=== PATIENT | male | born 1990 | race American Indian/Alaskan Native ===

== ENCOUNTER 2016-11-19 14:01 | Emergency (ER) | payer SELFPAY ==
[2016-11-19 14:31] VITALS: BP 137/78
--- NOTE | 2016-11-19 14:54 | EDM.PDOC ---
ED HPI GENERAL MEDICAL PROBLEM - General Chief Complaint: General Stated Complaint: [id number] COUGH SOB STUFFY NOSE BLOOD Time Seen by Provider: 11/19/16 14:54 Source of Information: Reports: Patient, RN, RN Notes Reviewed History Limitations: Reports: No Limitations - History of Present Illness INITIAL COMMENTS - FREE TEXT/NARRATIVE: Complaining of sinus pain x2-3 months with congestion, post-nasal drip. Now patient complaining of fever, chills and cough. Severity: Severe Improves with: Reports: None Worsens with: Reports: None Associated Symptoms: Reports: No Other Symptoms Chest Pain Score (Numeric/FACES): 3 - Related Data Allergies Allergy/AdvReac Type Severity Reaction Status Date / Time No Known Allergies Allergy Verified 11/19/16 14:32 Home Meds: Home Meds Albuterol [Ventolin HFA] 1 inh PO DAILY PRN 09/11/14 [History] Fluticasone Propionate [Flovent HFA 110 MCG] 1 puff INH BID 09/11/14 [History] Albuterol Sulfate 1 dose INH Q6H PRN 12/28/14 [History] Citalopram Hydrobromide [Citalopram HBr] 1 tab PO DAILY 12/28/14 [History] LORazepam 1 tab PO ASDIRECTED PRN 12/28/14 [History] Past Medical History - Past Health History Medical/Surgical History: Denies Medical/Surgical History HEENT History: Reports: None Cardiovascular History: Reports: None Respiratory History: Reports: Asthma Gastrointestinal History: Reports: None Genitourinary History: Reports: None Musculoskeletal History: Reports: None Neurological History: Reports: None Psychiatric History: Reports: Anxiety Endocrine/Metabolic History: Reports: None Hematologic History: Reports: None Immunologic History: Reports: None Oncologic (Cancer) History: Reports: None Dermatologic History: Reports: None - Past Surgical History HEENT Surgical History: Reports: Tonsillectomy Social & Family History - Family History Family Medical History: Noncontributory - Tobacco Use Smoking Status *Q: Light Tobacco Smoker Years of Tobacco use: 5 Packs/Tins Daily: 0.4 Used Tobacco, but Quit: No Month Tobacco Last Used: 12/10/2014 Second Hand Smoke Exposure: No - Caffeine Use Caffeine Use: Reports: Soda - Alcohol Use Days Per Week of Alcohol Use: 0 Number of Drinks Per Day: 5 Total Drinks Per Week: 0 - Recreational Drug Use Recreational Drug Use: No - Living Situation & Occupation Living situation: Reports: with Family Occupation: Employed ED ROS GENERAL - Review of Systems Review Of Systems: ROS reveals no pertinent complaints other than HPI. ED EXAM, GENERAL - Physical Exam Exam: See Below Exam Limited By: No Limitations General Appearance: Alert, WD/WN, No Apparent Distress Eye Exam: Bilateral Eye: Normal Inspection Ears: Other (injected turbinates with purulent drainage. ) Nose: Other (post-nasal drip. ) Throat/Mouth: Other Head: Other (maxillary and frontal facial tenderness. ) Neck: Normal Inspection, Supple, Non-Tender, Full Range of Motion Respiratory/Chest: Other (cough with scattered wheezes.) Cardiovascular: Normal Peripheral Pulses, Regular Rate, Rhythm, No Edema, No Gallop, No JVD, No Murmur, No Rub Back Exam: Normal Inspection, Full Range of Motion, NT Extremities: Normal Inspection, Normal Range of Motion, Non-Tender, Normal Capillary Refill, No Pedal Edema Neurological: Alert, Oriented, CN II-XII Intact, Normal Cognition, Normal Gait, Normal Reflexes, No Motor/Sensory Deficits Psychiatric: Normal Affect, Normal Mood Skin Exam: Warm, Dry, Intact, Normal Color, No Rash Lymphatic: No Adenopathy Course - Vital Signs Last Recorded V/S: Last Vital Signs Temp 36.4 C 11/19/16 14:30 Pulse 73 11/19/16 14:30 Resp 22 H 11/19/16 14:30 BP 137/78 11/19/16 14:30 Pulse Ox 100 11/19/16 14:30 - Orders/Labs/Meds Meds: Medications Discontinued Medications Generic Name Dose Route Start Last Admin Trade Name Tia PRN Reason Stop Dose Admin Albuterol 6.7 gm 11/19/16 15:37 11/19/16 15:49 Proventil Hfa INH 11/19/16 15:38 2 puff ONETIME ONE Administration Amoxicillin/Clavulanate Potassium 1 tab 11/19/16 15:36 11/19/16 15:49 Augmentin 875 Mg/125 Mg PO 11/19/16 15:37 1 tab ONETIME ONE Administration Prednisone 60 mg 11/19/16 15:37 11/19/16 15:49 Prednisone PO 11/19/16 15:38 60 mg ONETIME ONE Administration - Radiology Interpretation Free Text/Narrative:: Chest x-ray: Per rad report no active disease of the chest. No significant interval change. Departure - Departure Time of Disposition: 15:39 Disposition: Home, Self-Care 01 Condition: good Clinical Impression: Bronchitis Sinusitis Qualifiers: Sinusitis location: pansinusitis Chronicity: acute Recurrence: non-recurrent Qualified Code(s): J01.40 - Acute pansinusitis, unspecified - Discharge Information Instructions: Sinusitis, Adult, [id number], Acute Bronchitis, [id number] Forms: ED Department Discharge Additional Instructions: RX: Augmentin 875mg. Prednisone 20mg. Claritin D 24 hour. Frequent salt water gargle until improved. Follow up in clinic in 7 to 10 days if not clinically.
[2016-11-19] MEDS ORDERED: Amoxicillin/Clavulanate K 875-125 MG Tab PO ONE (15:36)
[2016-11-19] MEDS ORDERED: Albuterol 6.7 GM Inhaler INH ONE (15:37)
[2016-11-19] MEDS ORDERED: predniSONE 20 MG Tab PO ONE (15:37)
== END 2016-11-19 15:52 | disposition home or self-care (01) ==
LOC: DL.ED 14:01
DX: J40 Bronchitis, not specified as acute or chronic (principal); J01.40 Acute pansinusitis, unspecified; F17.210 Nicotine dependence, cigarettes, uncomplicated; Z79.899 Other long term (current) drug therapy
CPT/HCPCS: 71020; 99284; A9270; 99283

== ENCOUNTER 2017-03-12 13:49 | Emergency (ER) | payer OTHER ==
[2017-03-12 13:56] VITALS: BP 131/74
--- NOTE | 2017-03-12 14:16 | EDM.PDOC ---
ED HPI GENERAL MEDICAL PROBLEM - General Chief Complaint: Respiratory Problem Stated Complaint: hard time breathing [id number] Time Seen by Provider: 03/12/17 14:00 Source of Information: Reports: Patient, RN Notes Reviewed History Limitations: Reports: No Limitations - History of Present Illness INITIAL COMMENTS - FREE TEXT/NARRATIVE: Patient has dizziness, weakness, chest pain with shortness of breath, headache, cough, and phlegm that is yellow/brown. Seen at [facility] on and given Augmentin. No chest x-ray done. He had fever and chills 2 days ago. Nausea and vomiting x2 days ago. Nausea and vomiting with coughing. Thirsty all the time. Scribed by Nettie Szymanski Location: Reports: Chest Severity: Moderate Improves with: Reports: None Worsens with: Reports: None Associated Symptoms: Reports: No Other Symptoms - Related Data Allergies Allergy/AdvReac Type Severity Reaction Status Date / Time No Known Allergies Allergy Verified 11/19/16 14:32 Home Meds: Home Meds Albuterol [Ventolin HFA] 1 inh PO DAILY PRN 09/11/14 [History] Fluticasone Propionate [Flovent HFA 110 MCG] 1 puff INH BID 09/11/14 [History] Albuterol Sulfate 1 dose INH Q6H PRN 12/28/14 [History] Citalopram Hydrobromide [Citalopram HBr] 1 tab PO DAILY 12/28/14 [History] LORazepam 1 tab PO ASDIRECTED PRN 12/28/14 [History] Past Medical History - Past Health History Medical/Surgical History: Denies Medical/Surgical History HEENT History: Reports: None Cardiovascular History: Reports: None Respiratory History: Reports: Asthma Gastrointestinal History: Reports: None Genitourinary History: Reports: None Musculoskeletal History: Reports: None Neurological History: Reports: None Psychiatric History: Reports: Anxiety Endocrine/Metabolic History: Reports: None Hematologic History: Reports: None Immunologic History: Reports: None Oncologic (Cancer) History: Reports: None Dermatologic History: Reports: None - Past Surgical History HEENT Surgical History: Reports: Tonsillectomy Social & Family History - Family History Family Medical History: Noncontributory - Tobacco Use Smoking Status *Q: Current Every Day Smoker Years of Tobacco use: 5 Packs/Tins Daily: 0.2 Used Tobacco, but Quit: No Month Tobacco Last Used: 12/10/2014 Second Hand Smoke Exposure: No - Caffeine Use Caffeine Use: Reports: None - Alcohol Use Days Per Week of Alcohol Use: 0 Number of Drinks Per Day: 5 Total Drinks Per Week: 0 - Recreational Drug Use Recreational Drug Use: No - Living Situation & Occupation Living situation: Reports: with Family Occupation: Employed ED ROS GENERAL - Review of Systems Review Of Systems: ROS reveals no pertinent complaints other than HPI. ED EXAM, GENERAL - Physical Exam Exam: See Below Exam Limited By: No Limitations General Appearance: Alert, WD/WN, No Apparent Distress Eye Exam: Bilateral Eye: PERRL Ears: Other (bilateral effusions--otitis externa.) Nose: Normal Inspection Throat/Mouth: Other (mild erythematous oropharynx.) Head: Atraumatic, Normocephalic Neck: Normal Inspection, Supple, Non-Tender, Full Range of Motion Respiratory/Chest: No Respiratory Distress, Lungs Clear, Normal Breath Sounds, No Accessory Muscle Use, Chest Non-Tender Cardiovascular: Normal Peripheral Pulses, Regular Rate, Rhythm, No Edema, No Gallop, No JVD, No Murmur, No Rub GI/Abdominal: Normal Bowel Sounds, Soft, Non-Tender, No Organomegaly, No Distention, No Abnormal Bruit, No Mass (Male) Exam: Deferred Rectal (Males) Exam: Deferred Back Exam: Normal Inspection, Full Range of Motion, NT Extremities: Normal Inspection, Normal Range of Motion, Non-Tender, Normal Capillary Refill, No Pedal Edema Neurological: Alert, Oriented, CN II-XII Intact, Normal Cognition, Normal Gait, Normal Reflexes, No Motor/Sensory Deficits Psychiatric: Normal Affect, Normal Mood Skin Exam: Warm, Dry, Intact, Normal Color, No Rash Lymphatic: Adenopathy (right anterior cervical lymphadenopathy.) Course - Vital Signs Last Recorded V/S: Last Vital Signs Temp 96.7 F 03/12/17 13:55 Pulse 83 03/12/17 13:55 Resp 18 03/12/17 13:55 BP 131/74 03/12/17 13:55 Pulse Ox 96 03/12/17 13:55 - Orders/Labs/Meds Orders: Active Orders 24 hr Category Date Time Status Chest 2V [CR] Urgent Exams 03/12/17 14:09 Taken CULTURE STREP A CONFIRMATION [RM] Stat Lab 03/12/17 14:40 Results STREP SCRN A RAPID W CULT CONF [RM] Stat Lab 03/12/17 14:40 Results Labs: Laboratory Tests 03/12/17 03/12/17 03/12/17 Range/Units 14:21 14:21 14:21 WBC 7.0 (5.0-10.0) 10^3/uL RBC 5.05 (4.6-6.2) 10^6/uL Hgb 14.2 (14.0-18.0) g/dL Hct 43.1 (40.0-54.0) % MCV 85.3 (80-100) fL MCH 28.1 (27.0-34.0) pg MCHC 32.9 L (33.0-35.0) g/dL Plt Count 255 (150-450) 10^3/uL Neut % (Auto) 61.5 (42.2-75.2) % Lymph % (Auto) 29.8 (20.5-50.1) % [place] % (Auto) 5.2 (2-8) % Eos % (Auto) 3.1 H (1.0-3.0) % Baso % (Auto) 0.4 (0.0-1.0) % Sodium 137 (135-145) mmol/L Potassium 3.6 (3.6-5.0) mmol/L Chloride 102 (101-111) mmol/L Carbon Dioxide 25.0 (21.0-31.0) mmol/L Anion Gap 13.6 BUN 10 (7-18) mg/dL Creatinine 0.7 (0.6-1.3) mg/dL Est Cr Clr Drug Dosing 182.31 mL/min Estimated GFR (MDRD) > 60 BUN/Creatinine Ratio 14.28 Glucose 209 H (74-105) mg/dL Lactic Acid 2.2 (0.5-2.2) mmol/L Calcium 9.4 (8.4-10.2) mg/dl Total Bilirubin 0.6 (0.2-1.0) mg/dL AST 59 H (10-42) IU/L ALT 91 H (10-60) IU/L Alkaline Phosphatase 197 H (42-121) IU/L Total Protein 7.8 (6.7-8.2) g/dl Albumin 4.0 (3.2-5.5) g/dl Globulin 3.8 Albumin/Globulin Ratio 1.05 Departure - Departure Time of Disposition: 15:41 Disposition: Home, Self-Care 01 Condition: Fair Clinical Impression: Bronchitis - Discharge Information Instructions: Acute Bronchitis, [id number] Forms: ED Department Discharge Additional Instructions: RX: Prednisone. Follow up with primary care facility one week. - My Orders Last 24 Hours: My Active Orders 03/12/17 14:09 Chest 2V [CR] Urgent 03/12/17 14:40 CULTURE STREP A CONFIRMATION [RM] Stat STREP SCRN A RAPID W CULT CONF [RM] Stat - Assessment/Plan Last 24 Hours: My Active Orders 03/12/17 14:09 Chest 2V [CR] Urgent 03/12/17 14:40 CULTURE STREP A CONFIRMATION [RM] Stat STREP SCRN A RAPID W CULT CONF [RM] Stat
[2017-03-12 14:47] LABS: CHLORIDE,CL 102 mmol/L (101-111); SODIUM,NA 137 mmol/L (135-145)
== END 2017-03-12 15:48 | disposition home or self-care (01) ==
LOC: DL.ED 13:49
DX: J40 Bronchitis, not specified as acute or chronic (principal); F41.9 Anxiety disorder, unspecified; F17.210 Nicotine dependence, cigarettes, uncomplicated; Z98.890 Other specified postprocedural states; Z79.899 Other long term (current) drug therapy
CPT/HCPCS: 36415; 71020; 80053; 83605; 85025; 87081; 87430; 87804; 99285

== ENCOUNTER 2018-07-07 20:04 | Emergency (ER) | payer OTHER ==
[2018-07-07 20:13] VITALS: BP 149/77
[2018-07-07] MEDS ORDERED: Codeine/Promethazine 10-6.25 MG/5 ML Syrup 5 ML UD Cup PO ONE (22:09)
[2018-07-07] MEDS ORDERED: Azithromycin 250 MG Tab PO ONE (22:09)
[2018-07-07] MEDS ORDERED: Albuterol/Ipratropium 3.0-0.5 MG/3 ML Neb Soln NEB ONE (22:09)
[2018-07-07] MEDS ORDERED: methylPREDNISolone Sodium Succinate 125 MG/2 ML SDV IM ONE (22:09)
--- NOTE | 2018-07-07 22:14 | EDM.PDOC ---
ED HPI GENERAL MEDICAL PROBLEM - General Chief Complaint: Respiratory Problem Stated Complaint: COUGH,CHEST HURTS [id number] Time Seen by Provider: 07/07/18 22:11 Source of Information: Reports: Patient History Limitations: Reports: No Limitations - History of Present Illness INITIAL COMMENTS - FREE TEXT/NARRATIVE: Dx with bronchitis week ago told will get better but not. feels worse tonight. gives h/o asthma Upper Pain Score (Numeric/FACES): 3 - Related Data Allergies Allergy/AdvReac Type Severity Reaction Status Date / Time No Known Allergies Allergy Verified 07/07/18 20:16 Home Meds: Home Meds Albuterol [Ventolin HFA] 1 inh PO DAILY PRN 09/11/14 [History] Fluticasone Propionate [Flovent HFA 110 MCG] 1 puff INH BID 09/11/14 [History] Albuterol Sulfate 1 dose INH Q6H PRN 12/28/14 [History] Citalopram Hydrobromide [Citalopram HBr] 1 tab PO DAILY 12/28/14 [History] LORazepam 1 tab PO ASDIRECTED PRN 12/28/14 [History] Past Medical History - Past Health History Medical/Surgical History: Denies Medical/Surgical History HEENT History: Reports: Impaired Vision Cardiovascular History: Reports: None Respiratory History: Reports: Asthma Gastrointestinal History: Reports: None Genitourinary History: Reports: None Musculoskeletal History: Reports: None Neurological History: Reports: None Psychiatric History: Reports: Anxiety Endocrine/Metabolic History: Reports: None Hematologic History: Reports: None Immunologic History: Reports: None Oncologic (Cancer) History: Reports: None Dermatologic History: Reports: None - Infectious Disease History Infectious Disease History: Reports: None - Past Surgical History Head Surgeries/Procedures: Reports: None HEENT Surgical History: Reports: Tonsillectomy Social & Family History - Family History Family Medical History: Noncontributory - Tobacco Use Smoking Status *Q: Current Every Day Smoker Years of Tobacco use: 10 Packs/Tins Daily: 0.5 Used Tobacco, but Quit: No - Caffeine Use Caffeine Use: Reports: Soda - Recreational Drug Use Recreational Drug Use: No - Living Situation & Occupation Living situation: Reports: with Family Occupation: Employed ED ROS GENERAL - Review of Systems Review Of Systems: ROS reveals no pertinent complaints other than HPI. ED EXAM, GENERAL - Physical Exam Exam: See Below Exam Limited By: No Limitations General Appearance: Alert, WD/WN, Mild Distress, Other (episodic cough spasms) Ears: Hearing Grossly Normal Throat/Mouth: Normal Voice, No Airway Compromise Head: Atraumatic Neck: Non-Tender, Full Range of Motion Respiratory/Chest: No Respiratory Distress, No Accessory Muscle Use, Decreased Breath Sounds, Rhonchi, Wheezing Cardiovascular: Regular Rate, Rhythm GI/Abdominal: Soft, Non-Tender Neurological: Alert, Oriented, Normal Cognition, Normal Gait, No Motor/Sensory Deficits Psychiatric: Flat Affect Skin Exam: Warm, Dry, Normal Color Lymphatic: No Adenopathy Course - Vital Signs Last Recorded V/S: Last Vital Signs Temp 36.7 C 07/07/18 20:12 Pulse 70 07/07/18 20:12 Resp 18 07/07/18 20:12 BP 149/77 H 07/07/18 20:12 Pulse Ox 100 07/07/18 20:12 - Orders/Labs/Meds Orders: Active Orders 24 hr Category Date Time Status RT Aerosol Therapy [RC] ASDIRECTED Care 07/07/18 22:10 Active Meds: Medications Discontinued Medications Generic Name Dose Route Start Last Admin Trade Name Freq PRN Reason Stop Dose Admin Albuterol/Ipratropium 3 ml 07/07/18 22:09 07/07/18 22:24 Duoneb 3.0-0.5 Mg/3 Ml NEB 07/07/18 22:10 3 ml ONETIME ONE Administration Azithromycin 500 mg 07/07/18 22:09 07/07/18 22:23 Zithromax PO 07/07/18 22:10 500 mg ONETIME ONE Administration Methylprednisolone Sodium Succinate 125 mg 07/07/18 22:09 07/07/18 22:25 Solu-Medrol IM 07/07/18 22:10 125 mg ONETIME ONE Administration Promethazine HCl/Codeine 5 ml 07/07/18 22:09 07/07/18 22:23 Phenergan With Codeine PO 07/07/18 22:10 5 ml ONETIME ONE Administration Departure - Departure Time of Disposition: 22:36 Disposition: Home, Self-Care 01 Condition: Good Clinical Impression: Acute bronchitis with bronchospasm - Discharge Information Instructions: Acute Bronchitis, Adult, [id number] Forms: ED Department Discharge Additional Instructions: 1) use neb treatment 3 times daily for cough and wheeze 2) don't sleep flat at night 3) follow up at clinic rx given; z-allen medrol dospak phenergan codeine syrup qid prn x 4 oz - My Orders Last 24 Hours: My Active Orders 07/07/18 22:10 RT Aerosol Therapy [RC] ASDIRECTED - Assessment/Plan Last 24 Hours: My Active Orders 07/07/18 22:10 RT Aerosol Therapy [RC] ASDIRECTED
== END 2018-07-07 22:40 | disposition home or self-care (01) ==
LOC: DL.ED 20:04
DX: J20.9 Acute bronchitis, unspecified (principal); F17.210 Nicotine dependence, cigarettes, uncomplicated; J45.909 Unspecified asthma, uncomplicated; Z79.899 Other long term (current) drug therapy
CPT/HCPCS: 96372; 99283; A9270; J2930; J7620-GY

== ENCOUNTER 2020-06-20 17:39 | Emergency (ER) | payer OTHER ==
[2020-06-20] MEDS ORDERED: Sodium Chloride 0.9% 10 ML Syringe FLUSH PRN (17:47)
[2020-06-20 18:01] VITALS: BP 142/64; PULSE 85
--- NOTE | 2020-06-20 18:40 | CR ---
PROCEDURE INFORMATION: Exam: XR Chest, 1 View Exam date and time: 06/20/2020 6:30 PM Age: 29 years old Clinical indication: Other: Pain; Additional info: Chest pain/tightness, shortness of breath TECHNIQUE: Imaging protocol: XR of the chest Views: 1 view. COMPARISON: CR Chest 2V 07/13/2018 11:54 PM FINDINGS: 29-year-old male presenting with shortness of breath. A single view of the chest is provided for further evaluation. Clear lungs and pleural spaces. Normal cardiomediastinal silhouette and patent airways. No acute skeletal abnormality or aggressive osseous lesion. IMPRESSION: Normal chest.
[2020-06-20 18:45] LABS: ANION GAP 14.5 mEq/L (7-13); CHLORIDE,CL 101 mmol/L (98-107); SODIUM,NA 138 mmol/L (136-145)
--- NOTE | 2020-06-20 19:01 | EDM.PDOC ---
Scribed by Nettie Szymanski 06/20/20 [id number] for Lorie Doe MD ED HPI GENERAL MEDICAL PROBLEM - General Chief Complaint: Cardiovascular Problem Stated Complaint: LIGHT HEADED, HARDTIME BREATHING, FAINT Time Seen by Provider: 06/20/20 17:47 Source of Information: Reports: Patient, RN, RN Notes Reviewed History Limitations: Reports: No Limitations - History of Present Illness INITIAL COMMENTS - FREE TEXT/NARRATIVE: A 29-year-old male complaining of shortness of breath since 4:30 this afternoon. Patient also complaining of chest tightness and a feeling fo being overly warm. 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 History of asthma and anxiety. Patient cannot tell if he is experiencing an asthma exacerbation or anxiety attack. Patient used his inhaler with no improvement and came to the hospital directly from work. Denies headache, fever, cough, chills, drugs, ETOH, neck pain, abdominal pain, difficulty voiding, leg pain. Onset: Today Duration: Constant Location: Reports: Chest Quality: Reports: Ache Severity: Moderate Improves with: Reports: None Worsens with: Reports: None Associated Symptoms: Reports: No Other Symptoms - Related Data Allergies Allergy/AdvReac Type Severity Reaction Status Date / Time No Known Allergies Allergy Verified 07/13/18 23:57 Home Meds: Home Meds Albuterol [Ventolin HFA] 1 inh PO DAILY PRN 09/11/14 [History] Fluticasone Propionate [Flovent HFA 110 MCG] 1 puff INH BID 09/11/14 [History] Albuterol Sulfate 1 dose INH Q6H PRN 12/28/14 [History] Citalopram Hydrobromide [Citalopram HBr] 1 tab PO DAILY 12/28/14 [History] LORazepam 1 tab PO ASDIRECTED PRN 12/28/14 [History] Past Medical History - Past Health History Medical/Surgical History: Denies Medical/Surgical History HEENT History: Reports: Impaired Vision Cardiovascular History: Reports: None Respiratory History: Reports: Asthma Gastrointestinal History: Reports: None Genitourinary History: Reports: None Musculoskeletal History: Reports: None Neurological History: Reports: None Psychiatric History: Reports: Anxiety Endocrine/Metabolic History: Reports: None Hematologic History: Reports: None Immunologic History: Reports: None Oncologic (Cancer) History: Reports: None Dermatologic History: Reports: None - Infectious Disease History Infectious Disease History: Reports: None - Past Surgical History Head Surgeries/Procedures: Reports: None HEENT Surgical History: Reports: Tonsillectomy Social & Family History - Family History Family Medical History: No Pertinent Family History - Caffeine Use Caffeine Use: Reports: None - Living Situation & Occupation Living situation: Reports: with Family Occupation: Employed ED ROS GENERAL - Review of Systems Review Of Systems: Comprehensive ROS is negative, except as noted in HPI. ED EXAM, GENERAL - Physical Exam Exam: See Below Exam Limited By: No Limitations General Appearance: Alert, WD/WN, No Apparent Distress, Anxious, Obese Eye Exam: Bilateral Eye: Normal Inspection Ears: Hearing Grossly Normal Nose: Normal Inspection, Normal Mucosa, No Blood Throat/Mouth: Normal Inspection, Normal Lips, Normal Teeth, Normal Gums, Normal Oropharynx, Normal Voice, No Airway Compromise Head: Atraumatic, Normocephalic Neck: Normal Inspection, Supple, Non-Tender, Full Range of Motion Respiratory/Chest: No Respiratory Distress, Lungs Clear, Normal Breath Sounds, No Accessory Muscle Use, Chest Non-Tender Cardiovascular: Normal Peripheral Pulses, Regular Rate, Rhythm, No Edema, No Gallop, No JVD, No Murmur, No Rub GI/Abdominal: Soft, Non-Tender, No Distention, No Mass, Pelvis Stable (Male) Exam: Deferred Rectal (Males) Exam: Deferred Back Exam: Normal Inspection, Full Range of Motion. No: CVA Tenderness (L), CVA Tenderness (R) Extremities: Normal Inspection, Normal Range of Motion, Non-Tender, Normal Capillary Refill, No Pedal Edema Neurological: Alert, Oriented, CN II-XII Intact, Normal Cognition, Normal Gait, Normal Reflexes, No Motor/Sensory Deficits Psychiatric: Normal Affect, Anxious Skin Exam: Warm, Dry, Intact, Normal Color, No Rash #1 Interpretation EKG Date: 06/20/20 Time: 17:46 Rhythm: Other (sinus rhythm) Rate (Beats/Min): 82 [place]: Normal P-Wave: Present QRS: Normal ST-T: Normal QT: Normal Comparison: NA - No Prior EKG Course - Vital Signs Last Recorded V/S: Last Vital Signs Temp 98.1 F 06/20/20 17:54 Pulse 85 06/20/20 17:54 Resp 16 06/20/20 17:54 BP 142/64 H 06/20/20 17:54 Pulse Ox 99 06/20/20 17:54 - Orders/Labs/Meds Orders: Active Orders 24 hr Category Date Time Status EKG 12 Lead [EKG Documentation Completion] [] STAT Care 06/20/20 17:48 Active Peripheral IV Care [RC] . DIRECTED Care 06/20/20 17:49 Active Sodium Chloride 0.9% [Saline Flush] Med 06/20/20 17:47 Active 10 ml FLUSH ASDIRECTED PRN Peripheral IV Insertion Adult [OM.PC] Stat Oth 06/20/20 17:49 Ordered Medication Orders Sodium Chloride (Saline Flush) 10 ml FLUSH ASDIRECTED PRN PRN Reason: Keep Vein Open Labs: Laboratory Tests 06/20/20 06/20/20 06/20/20 Range/Units 18:15 18:15 18:15 WBC 9.0 (5.0-10.0) 10^3/uL RBC 5.07 (4.6-6.2) 10^6/uL Hgb 14.3 (14.0-18.0) g/dL Hct 43.1 (40.0-54.0) % MCV 85.0 (80-100) fL MCH 28.2 (27.0-34.0) pg MCHC 33.2 (33.0-35.0) g/dL Plt Count 275 (150-450) 10^3/uL Neut % (Auto) 57.0 (42.2-75.2) % Lymph % (Auto) 30.8 (20.5-50.1) % [place] % (Auto) 8.1 H (2-8) % Eos % (Auto) 3.9 H (1.0-3.0) % Baso % (Auto) 0.2 (0.0-1.0) % D-Dimer, Quantitative 303 (0-400) ng/mL Sodium 138 (136-145) mmol/L Potassium 4.5 (3.5-5.1) mmol/L Chloride 101 (98-107) mmol/L Carbon Dioxide 27 (21-32) mmol/L Anion Gap 14.5 H (7-13) mEq/L BUN 13 (7-18) mg/dL Creatinine 0.90 (0.70-1.30) mg/dL Est Cr Clr Drug Dosing 138.10 mL/min Estimated GFR (MDRD) > 60 BUN/Creatinine Ratio 14.4 (No establ ref range) Glucose 209 H (74-99) mg/dL Calcium 8.9 (8.5-10.1) mg/dL Total Bilirubin 0.3 (0.2-1.0) mg/dL AST 45 H (15-37) U/L ALT 116 H (16-63) U/L Alkaline Phosphatase 244 H (46-116) U/L Troponin I < 0.017 (0.000-0.056) ng/mL C-Reactive Protein 3.3 H (0.0-0.9) mg/dL Total Protein 8.2 (6.4-8.2) g/dL Albumin 3.7 (3.4-5.0) g/dL Globulin 4.5 Albumin/Globulin Ratio 0.8 Meds: Medications Generic Name Dose Route Start Last Admin Trade Name Freq PRN Reason Stop Dose Admin Sodium Chloride 10 ml 06/20/20 17:47 Saline Flush FLUSH ASDIRECTED PRN Keep Vein Open - Radiology Interpretation Free Text/Narrative:: [facility] Final Radiology Report Call: [phone] assistance Online chat: [email or web address] Name: ROSSY HANEY Age: 29Years M Date: 06/20/2020 SSN: -- : 1990 Study: CR CHEST 1V FRONTAL Requesting Physician: LORIE DOE Images: 1 Addl Studies: Provided Clinical History: chest pain/tightness, shortness of breath Contrast: Contrast Medium: Contrast Amount: Contrast Method: CONFIDENTIALITY STATEMENT This report is intended only for use by the referring physician, and only in accordance with law. If you received this in error, call [phone]. Page 1 of 1 PROCEDURE INFORMATION: Exam: XR Chest, 1 View Exam date and time: 06/20/2020 6:30 PM Age: 29 years old Clinical indication: Other: Pain; Additional info: Chest pain/tightness, shortness of breath TECHNIQUE: Imaging protocol: XR of the chest Views: 1 view. COMPARISON: CR Chest 2V 07/13/2018 11:54 PM FINDINGS: 29-year-old male presenting with shortness of breath. A single view of the chest is provided for further evaluation. Clear lungs and pleural spaces. Normal cardiomediastinal silhouette and patent airways. No acute skeletal abnormality or aggressive osseous lesion. IMPRESSION: Normal chest. Thank you for allowing us to participate in the care of your patient. Dictated and Authenticated by: Carmine Hutchinson MD 06/20/2020 6:40 PM Central Time ([place] & [place]) Departure - Departure Time of Disposition: 18:59 Disposition: Home, Self-Care 01 Condition: Good Clinical Impression: Hyperglycemia, Diabetes mellitus, new onset, Fatty infiltration of liver - Discharge Information *PRESCRIPTION DRUG MONITORING PROGRAM REVIEWED*: Not Applicable *COPY OF PRESCRIPTION DRUG MONITORING REPORT IN PATIENT BASSAM: Not Applicable Instructions: Type 2 Diabetes Mellitus, Diagnosis, Adult, [id number], Nonalcoholic Fatty Liver Disease Diet, Adult Forms: ED Department Discharge Additional Instructions: Look up and use [email or web address] for dietary changes. Follow up in clinic Monday, for diabetic evaluation. Sepsis Event Note (ED) - Focused Exam Vital Signs: Vital Signs Temp Pulse Resp BP Pulse Ox 06/20/20 17:54 98.1 F 85 16 142/64 H 99 - My Orders Last 24 Hours: My Active Orders 06/20/20 17:47 Sodium Chloride 0.9% [Saline Flush] 10 ml FLUSH ASDIRECTED PRN 06/20/20 17:48 EKG 12 Lead [EKG Documentation Completion] [RC] STAT 06/20/20 17:49 Peripheral IV Care [RC] . DIRECTED Peripheral IV Insertion Adult [OM.PC] Stat - Assessment/Plan Last 24 Hours: My Active Orders 06/20/20 17:47 Sodium Chloride 0.9% [Saline Flush] 10 ml FLUSH ASDIRECTED PRN 06/20/20 17:48 EKG 12 Lead [EKG Documentation Completion] [RC] STAT 06/20/20 17:49 Peripheral IV Care [RC] . DIRECTED Peripheral IV Insertion Adult [OM.PC] Stat I have read and agree with the documentation that has been completed regarding this visit. By signing this record, I attest that the documentation was completed in my physical presence and is an accurate record of the encounter.
== END 2020-06-20 19:18 | disposition home or self-care (01) ==
LOC: DL.ED 17:39
DX: E11.65 Type 2 diabetes mellitus with hyperglycemia (principal); K76.0 Fatty (change of) liver, not elsewhere classified; J45.909 Unspecified asthma, uncomplicated; Z79.899 Other long term (current) drug therapy
CPT/HCPCS: 36415; 71045; 80053; 84484; 85025; 85379; 86140; 93005; 93010; 99284; 99285-25

== ENCOUNTER 2020-07-25 19:04 | Emergency (ER) | payer OTHER ==
[2020-07-25] MEDS ORDERED: Ibuprofen 600 MG Tab PO ONE (19:43)
[2020-07-25] MEDS ORDERED: Sulfamethoxazole/Trimethoprim 800-160 MG Tab PO ONE (19:43)
[2020-07-25 19:44] VITALS: BP 128/71; PULSE 83
[2020-07-25] MEDS ORDERED: Sulfamethoxazole/Trimethoprim 800-160 MG Tab ONE (19:50)
--- NOTE | 2020-07-25 19:52 | EDM.PDOC ---
ED HPI GENERAL MEDICAL PROBLEM - General Chief Complaint: ENT Problem Stated Complaint: SORE BEHIND LEFT EAR Time Seen by Provider: 07/25/20 19:40 Source of Information: Reports: Patient History Limitations: Reports: No Limitations - History of Present Illness INITIAL COMMENTS - FREE TEXT/NARRATIVE: Patient is here for a sore behind his left ear. It started 2 days ago with a sma ll pimple which he popped. It is now larger and very painful. The pain is spreading down his neck and he has noted muffled hearing. It is hard for him to wear the mask behind his ear as it is rubbing on the sore. He is also concerned because he is diabetic. His last HgA1c was 7 back in June. He denies any fevers or chills. He is otherwise feeling well. He did take some ibuprofen earlier today which did help a little. 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 Left Posterior Ear Pain Score (Numeric/FACES): 5 - Related Data Allergies Allergy/AdvReac Type Severity Reaction Status Date / Time No Known Allergies Allergy Verified 07/25/20 19:22 Home Meds: Home Meds Albuterol [Ventolin HFA] 1 inh PO DAILY PRN 09/11/14 [History] Fluticasone Propionate [Flovent HFA 110 MCG] 1 puff INH BID 09/11/14 [History] Albuterol Sulfate 1 dose INH Q6H PRN 12/28/14 [History] Citalopram Hydrobromide [Citalopram HBr] 1 tab PO DAILY 12/28/14 [History] LORazepam 1 tab PO ASDIRECTED PRN 12/28/14 [History] Past Medical History - Past Health History Medical/Surgical History: Denies Medical/Surgical History HEENT History: Reports: Impaired Vision Cardiovascular History: Reports: None Respiratory History: Reports: Asthma Gastrointestinal History: Reports: None Genitourinary History: Reports: None Musculoskeletal History: Reports: None Neurological History: Reports: None Psychiatric History: Reports: Anxiety Endocrine/Metabolic History: Reports: None Hematologic History: Reports: None Immunologic History: Reports: None Oncologic (Cancer) History: Reports: None Dermatologic History: Reports: None - Infectious Disease History Infectious Disease History: Reports: None - Past Surgical History Head Surgeries/Procedures: Reports: None HEENT Surgical History: Reports: Tonsillectomy Social & Family History - Family History Family Medical History: No Pertinent Family History - Tobacco Use Tobacco Use Status *Q: Current Every Day Tobacco User Years of Tobacco use: 12 Packs/Tins Daily: 0.2 - Caffeine Use Caffeine Use: Reports: None - Recreational Drug Use Recreational Drug Use: No - Living Situation & Occupation Living situation: Reports: with Family Occupation: Employed ED ROS GENERAL - Review of Systems Review Of Systems: Comprehensive ROS is negative, except as noted in HPI. ED EXAM, SKIN/RASH Exam: See Below Exam Limited By: No Limitations General Appearance: Alert, WD/WN, No Apparent Distress Eye Exam: Bilateral Eye: Normal Inspection Ears: Normal Canal, Normal TMs, Other (slight swelling of the left pinna, without erythema, from the skin infection behind the ear noted below) Throat/Mouth: Normal Inspection Head: Atraumatic, Normocephalic Neck: Normal Inspection, Supple, Lymphadenopathy (L) Respiratory/Chest: No Respiratory Distress, Normal Breath Sounds, No Accessory Muscle Use Cardiovascular: Normal Peripheral Pulses, Regular Rate, Rhythm, No Murmur GI/Abdominal: Soft Back Exam: Full Range of Motion Extremities: Normal Inspection, Normal Range of Motion Neurological: Alert, Oriented, Normal Cognition, Normal Gait Psychiatric: Normal Affect, Normal Mood Skin: Warm, Dry, Erythema, Increased Warmth Location, Skin: Head Characteristics: Other (just behing the left ear there is an abscess about 5 mm in diameter with minimal fluctuance, no active or passive drainage. surrounding erythema and induration about 3 cm in dimater. ) Associated features: Warmth, Tenderness, Swelling, Induration Course - Vital Signs Last Recorded V/S: Last Vital Signs Temp 98.1 F 07/25/20 19:25 Pulse 83 07/25/20 19:25 Resp 17 07/25/20 19:25 BP 128/71 07/25/20 19:25 Pulse Ox 100 07/25/20 19:25 - Orders/Labs/Meds Meds: Medications Discontinued Medications Generic Name Dose Route Start Last Admin Trade Name Freq PRN Reason Stop Dose Admin Ibuprofen 600 mg 07/25/20 19:43 Motrin PO 07/25/20 19:44 ONETIME ONE Trimethoprim/Sulfamethoxazole 1 tab 07/25/20 19:43 Septra Ds PO 07/25/20 19:44 ONETIME ONE Departure - Departure Time of Disposition: 19:56 Disposition: Home, Self-Care 01 Condition: Good Clinical Impression: Cellulitis and abscess of head - Discharge Information *PRESCRIPTION DRUG MONITORING PROGRAM REVIEWED*: Not Applicable *COPY OF PRESCRIPTION DRUG MONITORING REPORT IN PATIENT BASSAM: Not Applicable Instructions: Skin Abscess, [id number] Additional Instructions: Bactrim twice daily for 10 days Ibuprofen 600 mg three times a day as needed for pain Warm compresses to the area behind the left ear to promote drainage follow up with primary care provider in 3-5 days Sepsis Event Note (ED) - Evaluation Sepsis Screening Result: No Definite Risk - Focused Exam Vital Signs: Vital Signs Temp Pulse Resp BP Pulse Ox 07/25/20 19:25 98.1 F 83 17 128/71 100
== END 2020-07-25 20:05 | disposition home or self-care (01) ==
LOC: DL.ED 19:04
DX: L02.811 Cutaneous abscess of head [any part, except face] (principal); L03.811 Cellulitis of head [any part, except face]; J45.909 Unspecified asthma, uncomplicated; Z72.0 Tobacco use; Z79.899 Other long term (current) drug therapy
CPT/HCPCS: 99283; A9270

== ENCOUNTER 2020-08-06 17:51 | Emergency (ER) | payer OTHER ==
[2020-08-06 18:23] VITALS: BP 139/69; PULSE 91
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
== END 2020-08-06 18:53 | disposition home or self-care (01) ==
LOC: DL.ED 17:51
DX: S61.451A Open bite of right hand, initial encounter (principal); J45.909 Unspecified asthma, uncomplicated; E11.9 Type 2 diabetes mellitus without complications; Z72.0 Tobacco use; Z79.899 Other long term (current) drug therapy; W50.3XXA Accidental bite by another person, initial encounter
CPT/HCPCS: 99283

== ENCOUNTER 2021-02-23 16:14 | Emergency (ER) | payer OTHER ==
[2021-02-23] MEDS ORDERED: Aspirin 81 MG Tab.Chew PO ONE (18:00)
--- NOTE | 2021-02-23 18:01 | EDM.PDOC ---
<Iker Ken M - Last Filed: 02/23/21 18:20> ED HPI GENERAL MEDICAL PROBLEM - General Chief Complaint: Behavioral/Psych Stated Complaint: CHEST Time Seen by Provider: 02/23/21 17:45 Source of Information: Reports: Patient History Limitations: Reports: No Limitations - History of Present Illness INITIAL COMMENTS - FREE TEXT/NARRATIVE: This 30 yo male patient reports to the ED with left sided chest pain and increased shortness of breath. The patient reports his symptoms started this afternoon at about 1530 and has continued since onset. The patient reports he did take an Ativan just prior to coming to the ED, but has continued to have chest pain and shortness of breath. The patient reports he has been taking anxiety medications, but has never had chest pain or shortness of breath due to his anxiety. 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(s) - Related Data Allergies Allergy/AdvReac Type Severity Reaction Status Date / Time No Known Allergies Allergy Verified 08/06/20 18:22 Home Meds: Home Meds Albuterol [Ventolin HFA] 1 inh PO DAILY PRN 09/11/14 [History] Fluticasone Propionate [Flovent HFA 110 MCG] 1 puff INH BID 09/11/14 [History] Albuterol Sulfate 1 dose INH Q6H PRN 12/28/14 [History] Citalopram Hydrobromide [Citalopram HBr] 1 tab PO DAILY 12/28/14 [History] LORazepam 1 tab PO ASDIRECTED PRN 12/28/14 [History] Past Medical History - Past Health History Medical/Surgical History: Denies Medical/Surgical History HEENT History: Reports: Impaired Vision Cardiovascular History: Reports: None Respiratory History: Reports: Asthma Gastrointestinal History: Reports: None Genitourinary History: Reports: None Musculoskeletal History: Reports: None Neurological History: Reports: None Psychiatric History: Reports: Anxiety Endocrine/Metabolic History: Reports: Diabetes, Type II Hematologic History: Reports: None Immunologic History: Reports: None Oncologic (Cancer) History: Reports: None Dermatologic History: Reports: None - Infectious Disease History Infectious Disease History: Reports: None - Past Surgical History Head Surgeries/Procedures: Reports: None HEENT Surgical History: Reports: Tonsillectomy Social & Family History - Family History Family Medical History: No Pertinent Family History - Caffeine Use Caffeine Use: Reports: None - Living Situation & Occupation Living situation: Reports: with Family Occupation: Employed ED ROS GENERAL - Review of Systems Review Of Systems: Comprehensive ROS is negative, except as noted in HPI. ED EXAM, GENERAL - Physical Exam Exam: See Below Exam Limited By: No Limitations General Appearance: Alert, WD/WN, Anxious, Obese Eye Exam: Bilateral Eye: EOMI, Normal Inspection, PERRL Ears: Normal External Exam, Normal Canal, Hearing Grossly Normal, Normal TMs Nose: Normal Inspection, Normal Mucosa, No Blood Throat/Mouth: Normal Inspection, Normal Lips, Normal Teeth, Normal Gums, Normal Oropharynx, Normal Voice, No Airway Compromise Head: Atraumatic, Normocephalic Neck: Normal Inspection, Supple, Non-Tender, Full Range of Motion Respiratory/Chest: No Respiratory Distress, Lungs Clear, Normal Breath Sounds, No Accessory Muscle Use, Other (left sided chest wall tenderness to palpation) Cardiovascular: Normal Peripheral Pulses, Regular Rate, Rhythm, No Edema, No Gallop, No JVD, No Murmur, No Rub GI/Abdominal: Normal Bowel Sounds, Soft, Non-Tender, No Organomegaly, No Distention, No Abnormal Bruit, No Mass (Male) Exam: Deferred Rectal (Males) Exam: Deferred Back Exam: Normal Inspection, Full Range of Motion, NT Extremities: Normal Inspection, Normal Range of Motion, Non-Tender, Normal Capillary Refill, No Pedal Edema Neurological: Alert, Oriented, CN II-XII Intact, Normal Cognition, Normal Gait, Normal Reflexes, No Motor/Sensory Deficits Psychiatric: Normal Affect, Anxious Skin Exam: Warm, Dry, Intact, Normal Color, No Rash Lymphatic: No Adenopathy #1 Interpretation EKG Date: 02/23/21 Time: 18:13 Rhythm: NSR Rate (Beats/Min): 65 [place]: Normal P-Wave: Present QRS: Normal ST-T: Normal QT: Normal Comparison: NA - No Prior EKG Departure - Departure Disposition: Home, Self-Care 01 Clinical Impression: Anxiety, Chest wall pain Referrals: Hussain Loredo NP [Primary Care Provider] - Forms: ED Department Discharge Additional Instructions: Tylenol and or Ibuprofen as needed for chest wall pain. Continue with your Ativan at home as needed for anxiety that you have received previously. Return to the ED if new or worsening symptoms. Follow up with PCP in the next 4-6 days if not improving sooner if worse. <Steve Tran - Last Filed: 02/24/21 00:07> Course - Vital Signs Last Recorded V/S: Last Vital Signs Temp 97.7 F 02/23/21 19:24 Pulse 62 02/23/21 19:24 Resp 18 02/23/21 19:24 BP 140/80 02/23/21 19:24 Pulse Ox 98 02/23/21 19:24 - Orders/Labs/Meds Labs: Laboratory Tests 02/23/21 02/23/21 02/23/21 Range/Units 18:14 18:14 19:00 WBC 9.4 (5.0-10.0) 10^3/uL RBC 5.06 (4.6-6.2) 10^6/uL Hgb 14.1 (14.0-18.0) g/dL Hct 43.2 (40.0-54.0) % MCV 85.4 (80-100) fL MCH 27.9 (27.0-34.0) pg MCHC 32.6 L (33.0-35.0) g/dL Plt Count 248 (150-450) 10^3/uL Neut % (Auto) 69.6 (42.2-75.2) % Lymph % (Auto) 21.6 (20.5-50.1) % [place] % (Auto) 7.7 (2-8) % Eos % (Auto) 0.9 L (1.0-3.0) % Baso % (Auto) 0.2 (0.0-1.0) % Sodium 141 (136-145) mmol/L Potassium 4.2 (3.5-5.1) mmol/L Chloride 106 (98-107) mmol/L Carbon Dioxide 26 (21-32) mmol/L Anion Gap 13.2 H (7-13) mEq/L BUN 11 (7-18) mg/dL Creatinine 0.84 (0.70-1.30) mg/dL Est Cr Clr Drug Dosing 146.64 mL/min Estimated GFR (MDRD) > 60 BUN/Creatinine Ratio 13.1 (No establ ref range) Glucose 106 H (70-99) mg/dL Calcium 8.8 (8.5-10.1) mg/dL Total Bilirubin 0.3 (0.2-1.0) mg/dL AST 68 H (15-37) U/L ALT 157 H (16-63) U/L Alkaline Phosphatase 226 H (46-116) U/L Troponin I High Sens 15 (<=76) pg/mL Total Protein 7.8 (6.4-8.2) g/dL Albumin 3.6 (3.4-5.0) g/dL Globulin 4.2 Albumin/Globulin Ratio 0.9 Urine Color Yellow (YELLOW) Urine Appearance Clear (CLEAR) Urine pH 7.0 (5.0-9.0) Ur Specific [place] >= 1.030 (1.005-1.030) Urine Protein Negative (NEGATIVE) Urine Glucose (UA) Negative (NEGATIVE) Urine Ketones Negative (NEGATIVE) Urine Occult Blood Negative (NEGATIVE) Urine Nitrite Negative (NEGATIVE) Urine Bilirubin Negative (NEGATIVE) Urine Urobilinogen 0.2 (0.2-1.0) mg/dL Ur Leukocyte Esterase Negative (NEGATIVE) Urine Opiates Screen (NEGATIVE) Ur Oxycodone Screen (NEGATIVE) Urine Methadone Screen (NEGATIVE) Ur Barbiturates Screen (NEGATIVE) U Tricyclic Antidepress (NEGATIVE) Ur Phencyclidine Scrn (NEGATIVE) Ur Amphetamine Screen (NEGATIVE) U Methamphetamines Scrn (NEGATIVE) Urine MDMA Screen (NEGATIVE) U Benzodiazepines Scrn (NEGATIVE) Urine Cocaine Screen (NEGATIVE) U Marijuana (THC) Screen (NEGATIVE) 02/23/21 Range/Units 19:00 WBC (5.0-10.0) 10^3/uL RBC (4.6-6.2) 10^6/uL Hgb (14.0-18.0) g/dL Hct (40.0-54.0) % MCV (80-100) fL MCH (27.0-34.0) pg MCHC (33.0-35.0) g/dL Plt Count (150-450) 10^3/uL Neut % (Auto) (42.2-75.2) % Lymph % (Auto) (20.5-50.1) % [place] % (Auto) (2-8) % Eos % (Auto) (1.0-3.0) % Baso % (Auto) (0.0-1.0) % Sodium (136-145) mmol/L Potassium (3.5-5.1) mmol/L Chloride (98-107) mmol/L Carbon Dioxide (21-32) mmol/L Anion Gap (7-13) mEq/L BUN (7-18) mg/dL Creatinine (0.70-1.30) mg/dL Est Cr Clr Drug Dosing mL/min Estimated GFR (MDRD) BUN/Creatinine Ratio (No establ ref range) Glucose (70-99) mg/dL Calcium (8.5-10.1) mg/dL Total Bilirubin (0.2-1.0) mg/dL AST (15-37) U/L ALT (16-63) U/L Alkaline Phosphatase (46-116) U/L Troponin I High Sens (<=76) pg/mL Total Protein (6.4-8.2) g/dL Albumin (3.4-5.0) g/dL Globulin Albumin/Globulin Ratio Urine Color (YELLOW) Urine Appearance (CLEAR) Urine pH (5.0-9.0) Ur Specific [place] (1.005-1.030) Urine Protein (NEGATIVE) Urine Glucose (UA) (NEGATIVE) Urine Ketones (NEGATIVE) Urine Occult Blood (NEGATIVE) Urine Nitrite (NEGATIVE) Urine Bilirubin (NEGATIVE) Urine Urobilinogen (0.2-1.0) mg/dL Ur Leukocyte Esterase (NEGATIVE) Urine Opiates Screen Negative (NEGATIVE) Ur Oxycodone Screen Negative (NEGATIVE) Urine Methadone Screen Negative (NEGATIVE) Ur Barbiturates Screen Negative (NEGATIVE) U Tricyclic Antidepress Negative (NEGATIVE) Ur Phencyclidine Scrn Negative (NEGATIVE) Ur Amphetamine Screen Negative (NEGATIVE) U Methamphetamines Scrn Negative (NEGATIVE) Urine MDMA Screen Negative (NEGATIVE) U Benzodiazepines Scrn Negative (NEGATIVE) Urine Cocaine Screen Negative (NEGATIVE) U Marijuana (THC) Screen Negative (NEGATIVE) Meds: Medications Discontinued Medications Generic Name Dose Route Start Last Admin Trade Name Freq PRN Reason Stop Dose Admin Aspirin 324 mg 02/23/21 18:00 02/23/21 18:11 Aspirin 81 Mg Tab.Chew PO 02/23/21 18:01 324 mg ONETIME ONE Administration - Radiology Interpretation Free Text/Narrative:: Chest x-ray per radiology shows no radiographically apparent acute abnormality in the chest. - Re-Assessments/Exams Free Text/Narrative Re-Assessment/Exam: Assumed care of this patient at shift change from Iker Montez PA-C. Laboratory evaluation with a normal CBC. CMP with an anion gap of 13.2, glucose 106 normal T bili of 0.3 AST 68 ALT 157 alkaline phosphatase 226 this is most likely due to the patient's chronic alcoholism that he reports to myself when I visit with him. His abdomen is soft nontender. Troponin is negative at 15. Urinalysis is negative as well as his urine drug screen. His anxiety was much improved with the Ativan that he took prior to arrival. His pain is reproducible on palpation on the left anterior chest. This is the presence of musculoskeletal chest wall pain there is no signs of pleurisy. Tylenol ibuprofen as needed for pain. The rest of his work-up is negative. Recheck if anything new or worse. He is comfortable with this plan his questions are answered. Departure - Departure Time of Disposition: 19:26 Sepsis Event Note (ED) - Focused Exam Vital Signs: Vital Signs Temp Pulse Resp BP Pulse Ox 02/23/21 19:24 97.7 F 62 18 140/80 98 02/23/21 16:50 97.6 F 76 18 141/74 H 95
[2021-02-23 18:40] LABS: ANION GAP 13.2 mEq/L (7-13); CHLORIDE,CL 106 mmol/L (98-107); SODIUM,NA 141 mmol/L (136-145)
--- NOTE | 2021-02-23 18:46 | CR ---
PROCEDURE INFORMATION: Exam: XR Chest Exam date and time: 02/23/2021 6:01 PM Age: 30 years old Clinical indication: Chest wall pain; Additional info: Chest pain TECHNIQUE: Imaging protocol: XR of the chest. Views: 1 view. COMPARISON: CR Chest 1V Frontal 06/20/2020 6:30 PM FINDINGS: Lungs: Unremarkable. No consolidation. Pleural spaces: Unremarkable. No pleural effusion. No pneumothorax. Heart/Mediastinum: Borderline cardiomegaly. Bones/joints: No evidence of acute osseous abnormality. IMPRESSION: No radiographically apparent acute abnormality in the chest.
[2021-02-23 19:25] VITALS: BP 140/80; PULSE 62
[2021-02-23 19:25] LABS: AMPHETAMINES,URINE NEGATIVE (NEGATIVE); BARBITURATES,URINE NEGATIVE (NEGATIVE); BENZODIAZEPINE,URINE NEGATIVE (NEGATIVE); MDMA (ECSTASY), URINE NEGATIVE (NEGATIVE); METHADONE,URINE NEGATIVE (NEGATIVE); METHAMPHETAMINES,URINE NEGATIVE (NEGATIVE); OPIATES,URINE NEGATIVE (NEGATIVE); OXYCODONE,URINE NEGATIVE (NEGATIVE); PHENCYCLIDINE,URINE NEGATIVE (NEGATIVE); TCA,URINE NEGATIVE (NEGATIVE)
== END 2021-02-23 19:33 | disposition home or self-care (01) ==
LOC: DL.ED 16:14
DX: R07.89 Other chest pain (principal); F41.9 Anxiety disorder, unspecified; E11.9 Type 2 diabetes mellitus without complications
CPT/HCPCS: 36415; 71045; 80053; 80305; 81003; 84484; 85025; 93005; 99285; A9270

== ENCOUNTER 2023-02-03 02:32 | Emergency (ER) | payer BC, OTHER ==
[2023-02-03 02:50] VITALS: BP 148/93; PULSE 88
== END 2023-02-03 03:12 | disposition home or self-care (01) ==
LOC: DL.ED 02:32
DX: S90.01XA Contusion of right ankle, initial encounter (principal); J45.909 Unspecified asthma, uncomplicated; E11.9 Type 2 diabetes mellitus without complications; Z79.51 Long term (current) use of inhaled steroids; X50.1XXA Overexertion from prolonged static or awkward postures, initial encounter
CPT/HCPCS: 73610-RT; 99282; 99283

== ENCOUNTER 2024-02-24 17:16 | Emergency (ER) | payer BC, OTHER ==
[2024-02-24] MEDS: Albuterol/Ipratropium 3.0-0.5 MG/3 ML Neb Soln NEB ONE (17:32)
[2024-02-24] MEDS: Albuterol 0.083% 2.5 MG/3 ML Neb Soln NEB ONE (17:48)
[2024-02-24 17:54] LABS: BASOPHILS PERCENT AUTO 0.1 % (0.0-1.0); EOSINOPHILS PERCENT AUTO 1.8 % (1.0-3.0); HEMATOCRIT 44.1 % (40.0-54.0); HEMOGLOBIN 14.6 g/dL (14.0-18.0); MEAN CORPUSCULAR HEMOGLOBIN 28.8 pg (27.0-34.0); MEAN CORPUSCULAR HGB CONC 33.1 g/dL (33.0-35.0); MONOCYTES PERCENT AUTO 5.1 % (2-8); PLATELET COUNT,PLT 260 10^3/uL (150-450); RED BLOOD CELL COUNT 5.07 10^6/uL (4.6-6.2); WHITE BLOOD CELL COUNT,WBC 9.4 10^3/uL (5.0-10.0)
[2024-02-24 18:16] LABS: A/G RATIO 0.8; ALBUMIN 3.5 g/dL (3.4-5.0); ANION GAP 12.2 mEq/L (7-13); BILIRUBIN TOTAL 0.5 mg/dL (0.2-1.0); BUN/CREATININE RATIO 10.9 (No establ ref range); CALCIUM 9.1 mg/dL (8.5-10.1); CREATININE 1.01 mg/dL (0.70-1.30); EST CRCL DRUG DOSING (CG) 118.66 mL/min; POTASSIUM,K 4.2 mmol/L (3.5-5.1); PROTEIN TOTAL,TP 7.9 g/dL (6.4-8.2)
[2024-02-24] MEDS ORDERED: Take Home: Albuterol/Ipratropium 3.0-0.5 MG/3 ML Neb Soln, 4 Neb Pack NEB ONE (18:35)
[2024-02-24] MEDS: Budesonide 0.5 MG/2 ML Neb Susp NEB ONE ×2 (18:46→19:16)
[2024-02-24] MEDS: predniSONE 20 MG Tab PO ONE (18:46)
[2024-02-24 18:49] VITALS: BP 129/76; PULSE 86
[2024-02-24] MEDS ORDERED: Albuterol 0.083% 2.5 MG/3 ML Neb Soln ONE (19:14)
[2024-02-24] MEDS: Take Home: Albuterol 0.083% 2.5 MG/3 ML Neb Soln, 5 Neb Pack NEB ONE (19:15)
[2024-02-24] MEDS: Take Home: Benzonatate 100 MG, 6 Cap Pack PO ONE (19:16)
[2024-02-25] MEDS ORDERED: Formoterol/Mometasone 100-5 MCG 8.8 GM Inhaler INH SCH (06:00)
== END 2024-02-24 19:23 | disposition home or self-care (01) ==
LOC: DL.ED 17:16
DX: J45.901 Unspecified asthma with (acute) exacerbation (principal); E11.9 Type 2 diabetes mellitus without complications; Z79.899 Other long term (current) drug therapy
CPT/HCPCS: 36415; 71046; 80053; 82947; 83735; 85025; 87804; 94640; 99284; 99285; A9270-GY; J3490; J7512; J7613-GY; J7620-GY; U0002

== ENCOUNTER 2024-05-14 06:33 | Emergency (ER) | payer BC ==
[2024-05-14] MEDS: Bacitracin/Neomycin/Polymyxin B Oint 28.4 GM Tube TOP ONE (07:23)
[2024-05-14] MEDS: Ketorolac 30 MG/ML SDV IM ONE (07:24)
[2024-05-14] MEDS: cefTRIAXone 1 GM, Lidocaine 1% 2.1 ML IM ONE (07:24)
[2024-05-14] MEDS: Diphtheria,Pertussis(Acell),Tetanus Vaccine 0.5 ML Syringe IM ONE (07:25)
[2024-05-14 07:52] VITALS: BP 140/74; PULSE 84
[2024-05-14] MEDS: cefTRIAXone 1 GM Vial ONE (07:54)
[2024-05-14] MEDS: Lidocaine 1% 5 ML VIAL ONE (07:54)
== END 2024-05-14 07:48 | disposition home or self-care (01) ==
LOC: DL.ED 06:33
DX: L02.211 Cutaneous abscess of abdominal wall (principal); J45.909 Unspecified asthma, uncomplicated; E11.9 Type 2 diabetes mellitus without complications; F17.210 Nicotine dependence, cigarettes, uncomplicated; Z90.89 Acquired absence of other organs; Z79.51 Long term (current) use of inhaled steroids; Z79.899 Other long term (current) drug therapy; Z23 Encounter for immunization
CPT/HCPCS: 87070; 90471; 90715; 96372; 99283; 99284; A9270; J0696; J1885; J3490

== ENCOUNTER 2024-09-28 17:35 | Emergency (ER) | payer BC ==
[2024-09-28 17:54] VITALS: BP 153/83; PULSE 97
== END 2024-09-28 17:58 | disposition home or self-care (01) ==
LOC: DL.ED 17:35
DX: S23.13 Subluxation and dislocation of T4/T5-T5/T6 thoracic vertebra (principal); E11.9 Type 2 diabetes mellitus without complications; Z79.51 Long term (current) use of inhaled steroids; Z79.899 Other long term (current) drug therapy; X50.0XXA Overexertion from strenuous movement or load, initial encounter; Y93.89 Activity, other specified
CPT/HCPCS: 99283